=== PATIENT | female | born 1980 | race African-American/Black ===

== ENCOUNTER 2017-05-04 08:13 | Emergency (ER) | payer OTHER ==
[~2017-05-04] VITALS: Ht 162.6 cm; Wt 92.1 kg
[~2017-05-04 08:13] MED LIST: CYCLOBENZAPRINE10 M1 PO; IBUPROFEN800 M1 PO; NAPROSYN500 M1 PO; ROBAXIN-750750 M1 PO; TYLENOL WITH C1 EACH PO
[2017-05-04 08:19] VITALS: BP 115/79
[2017-05-04] MEDS ORDERED: IBUPROFEN600 M1 PO (08:27)
[2017-05-04] MEDS ORDERED: AMOXICILLIN500 M3 PO (08:27)
[2017-05-04] MEDS ORDERED: AFRIN30 ML NASB (08:28)
--- NOTE | 2017-05-04 08:28 | ED EAR COMPLAINT ---
History of Present Illness General Chief Complaint: Ear Complaints Stated Complaint: BILATERAL EAR RINGING X 7DYS Source: patient, old records Exam Limitations: no limitations Vital Signs & Intake/Output Vital Signs & Intake/Output Vital Signs Date Time Temp Pulse Resp B/P B/P Pulse O2 O2 Flow FiO2 Mean Ox Delivery Rate 05/04 0819 97.8 79 18 115/79 98 Room Air Allergies Coded Allergies: No Known Allergies (06/24/15) Reconcile Medications Amoxicillin 500 MG TABLET 1 TAB PO TID otitis media Cyclobenzaprine HCl 10 MG TABLET 1 TAB PO TID PRN MUSCLE SPASM Ibuprofen 800 MG TABLET 1 TAB PO TID PRN pain Ibuprofen 600 MG TABLET 1 TAB PO Q6PRN PRN pain with food Methocarbamol (Robaxin-750) 750 MG TABLET 1 TAB PO TID PRN SPASM Naproxen (Naprosyn) 500 MG TABLET 1 TAB PO BID INFLAMMATION Oxymetazoline HCl (Afrin) 0.05 % SPRAY 2 SPRAY NASB BID otitis Tylenol With Codeine (Tylenol With Codeine #3 Tablet) 1 EACH TABLET 1 TAB PO Q4-6 PRN PRN PAIN Triage Note: C/O BILATERAL EAR PAIN, AND FEELING "CLOGGED X 1 WEEK. Triage Nurses Notes Reviewed? yes Onset: Last week Duration: day(s):, constant, continues in ED Timing: recent history Injury Environment: home Severity: moderate No Modifying Factors: none LMP (ages 10-50): unknown : No Patient currently breastfeeds: No HPI: 1 week prior to admission patient complains of bilateral ear pain thought to be secondary to wax. She used hydrogen peroxide that transiently helped the pain. She denies fever chills nausea vomiting diarrhea abdominal pain cough congestion headache dysuria rash bleeding change in hearing. Past History Travel History Traveled to [place] past 21 day No Medical History Any Pertinent Medical History? see below for history Neurological: NONE EENT: NONE Cardiovascular: NONE Respiratory: NONE Gastrointestinal: NONE Hepatic: NONE Renal: NONE Musculoskeletal: NONE Psychiatric: NONE Endocrine: borderline diabetes? Surgical History Surgical History: non-contributory Psychosocial History What is your primary language Burmese Tobacco Use: Current Daily Use Daily Tobacco Use Amount/Type: => 5 Cigarettes daily ETOH Use: denies use Family History Hx Contributory? No Review of Systems Review of Systems Constitutional: Reports: no symptoms. EENTM: Reports: see HPI, ear pain. Respiratory: Reports: no symptoms. Cardiovascular: Reports: no symptoms. GI: Reports: no symptoms. Genitourinary: Reports: no symptoms. Musculoskeletal: Reports: no symptoms. Skin: Reports: no symptoms. Neurological/Psychological: Reports: no symptoms. Hematologic/Endocrine: Reports: no symptoms. Immunologic/Allergic: Reports: no symptoms. All Other Systems: Reviewed and Negative Physical Exam Physical Exam General Appearance: well developed/nourished, alert, awake, anxious, mild distress Head: atraumatic Eyes: Bilateral: normal appearance, PERRL, EOMI. Ears: Bilateral: canal normal, Tympanic red, Tympanic bulging. Nose: normal inspection Mouth/Throat: normal mouth inspection, pharynx normal Neck: normal inspection, supple, full range of motion, no midline tenderness Cardiovascular/Respiratory: normal breath sounds, normal peripheral pulses, regular rate/rhythm, no respiratory distress Back: normal inspection, normal range of motion, no vertebral tenderness Neurologic/Psych: no motor/sensory deficits, awake, alert, oriented x 3, normal gait, normal mood/affect Skin: intact, normal color, warm/dry Progress Differential Diagnoses I considered the following diagnoses in my evaluation of the patient: Otitis media and cerumen impaction otitis externa Plan of Care: Current Medications Sig/[place] Start time Last Medication Dose Stop Time Status Admin Amoxicillin 500 MG ONCE ONE 05/04 829 UNVr 05/04 (Amoxil) 05/04 0831 0828 Initial ED EKG: none Departure Departure Time of Disposition: 825 Disposition: HOME OR SELF CARE Condition: Stable Clinical Impression Primary Impression: Otitis media Referrals: Claribel SALAS,[place] Pillai APRN (PCP/Family) Departure Forms: Customer Survey General Discharge Information Prescriptions: Current Visit Scripts Amoxicillin 1 TAB PO TID #30 TAB Ibuprofen 1 TAB PO Q6PRN PRN pain #50 TAB with food Oxymetazoline HCl (Afrin) 2 SPRAY NASB BID #30 ML
== END 2017-05-04 08:37 ==
LOC: ERH 08:13
DX: H66.93 Otitis media, unspecified, bilateral (principal)